=== PATIENT | female | born 2000 | race African-American/Black ===

== ENCOUNTER 2023-10-29 12:17 | Outpatient (CLI) | payer OTHER, SELFPAY ==
[2023-10-29 13:43] LABS: HIV 1/2 Ab P24 Ag Result Negative (Negative)
[2023-10-29 14:17] LABS: HAV RESULT Negative (Negative)
[2023-10-29 14:30] LABS: Hepatitis C Virus Antibody Negative (Negative)
[2023-10-29 22:52] LABS: Beta HCG Quantitative < 2.39 mIU/ML
[2023-10-30 12:30] LABS: Rapid Plasma Reagin Non-Reactive (NonReactive)
== END 2023-10-29 12:18 | disposition home or self-care (01) ==
LOC: ANHLAB 12:19
PROVIDERS: Visit Provider Obstetrics & Gynecology
DX: Z11.3 Encounter for screening for infections with a predominantly sexual mode of transmission (principal); N92.6 Irregular menstruation, unspecified
CPT/HCPCS: 36415; 84702; 86592; 86695; 86696; 86703; 86709; 86803; G0432